=== PATIENT | female | born 1990 | race Caucasian/White ===

== ENCOUNTER 2025-02-07 17:40 | Emergency (ER) | payer BC ==
[~2025-02-07] VITALS: Ht 167.6 cm; Wt 113.4 kg
[2025-02-07] MEDS ORDERED: GABA300C PO (17:56)
[2025-02-07] MEDS ORDERED: PANT40TA2 PO (17:56)
[2025-02-07] MEDS ORDERED: PROP80CA59 PO (17:56)
[2025-02-07 18:00] LABS: BASOPHILS % (AUTO) 0.4 % (0.0-2.0); EOSINOPHILS # (AUTO) 0.1 K/uL (0.0-0.7); EOSINOPHILS % (AUTO) 1.4 % (0.0-7.0); HEMATOCRIT 39.4 % (31.2-41.9); HEMOGLOBIN 13.3 g/dL (10.9-14.3); LYMPHOCYTES # (AUTO) 1.3 K/uL (0.8-4.8); LYMPHOCYTES % (AUTO) 25.5 % (20.5-51.5); MEAN CORPUSCULAR HEMOGLOBIN 30.3 uug (24.7-32.8); MEAN CORPUSCULAR HGB CONC 34 g/dL (32.3-35.6); MONOCYTES # (AUTO) 0.6 K/uL (0.1-1.30); MONOCYTES % (AUTO) 10.9 % (0.0-11.0); NEUTROPHILS # (AUTO) 3.2 K/uL (1.8-8.9); NEUTROPHILS % (AUTO) 61.8 % (38.5-71.5); PLATELET COUNT (AUTO) 222 K/uL (179-408); RED BLOOD CELL COUNT(AUTO) 4.38 MIL/uL (3.63-4.92); WHITE BLOOD COUNT (AUTO) 5.3 K/uL (3.8-11.8)
[2025-02-07 18:03] LABS: DIFFERENTIAL COMMENT 1
[2025-02-07 18:05] LABS: CALCIUM 8.2 mg/dL (8.5-10.1); CREATININE 0.6 mg/dL (0.6-1.3)
[2025-02-07] MEDS ORDERED: HYDROCORTISONE SOD SUCCINATE 100 MG/2 ML VIAL IV ONE (18:23)
[2025-02-07] MEDS: ALBUTEROL SULFATE 2.5 MG/3 ML NEBU NEB ONE (18:24)
[2025-02-07] MEDS: IPRATROPIUM BROMIDE 0.5 MG/2.5 ML NEBU NEB ONE (18:24)
[2025-02-07 18:26] VITALS: O2SAT 99
[2025-02-07] MEDS ORDERED: ALBUTEROL SULFATE 2.5 MG/3 ML NEBU ONE (18:26)
[2025-02-07] MEDS ORDERED: IPRATROPIUM BROMIDE 0.5 MG/2.5 ML NEBU ONE (18:27)
[2025-02-07] MEDS: HYDROCORTISONE SOD SUCCINATE 100 MG/2 ML VIAL IV ONE (18:28)
[2025-02-07] MEDS ORDERED: METH4TAB PO (18:30)
[2025-02-07] MEDS ORDERED: AZIT250T13 PO (18:30)
[2025-02-07 18:41] VITALS: O2SAT 100
[2025-02-07 18:54] VITALS: BP 135/102; O2SAT 100
== END 2025-02-07 18:54 | disposition home or self-care (01) ==
LOC: ER 17:40
DX: R55 Syncope and collapse (principal); K21.9 Gastro-esophageal reflux disease without esophagitis; Z79.899 Other long term (current) drug therapy; Z88.0 Allergy status to penicillin; Z88.1 Allergy status to other antibiotic agents; Z88.2 Allergy status to sulfonamides
CPT/HCPCS: 99284; 96374; 80048; 85025; 36415; 94640; 93005; J1720; A4606; A4663; J3590

== ENCOUNTER 2025-02-19 20:33 | Emergency (ER) | payer BC ==
[~2025-02-19] VITALS: Ht 167.6 cm; Wt 115.7 kg
[~2025-02-19 20:33] MED LIST: AZIT250T13 PO; GABA300C PO; METH4TAB PO; PANT40TA2 PO; PROP80CA59 PO
[2025-02-19] MEDS ORDERED: METOCLOPRAMIDE HCL 10 MG TABLET ONE (22:58)
[2025-02-19] MEDS ORDERED: ACETAMINOPHEN 500 MG TABLET ONE (22:58)
[2025-02-19] MEDS: ACETAMINOPHEN 500 MG TABLET PO ONE (23:00)
[2025-02-19] MEDS: METOCLOPRAMIDE HCL 10 MG TABLET PO ONE (23:00)
[2025-02-20] MEDS ORDERED: CYCL5TAB PO (00:58)
[2025-02-20] MEDS ORDERED: METO-295 PO (00:58)
[2025-02-20] MEDS ORDERED: NAPR-1009 PO (00:58)
[2025-02-20 01:17] VITALS: BP 147/82; TEMP 98; O2SAT 98
== END 2025-02-20 01:18 | disposition home or self-care (01) ==
LOC: ER 20:37
DX: S06.0X0A Concussion without loss of consciousness, initial encounter (principal); M54.42 Lumbago with sciatica, left side; M54.2 Cervicalgia; R03.0 Elevated blood-pressure reading, without diagnosis of hypertension; R41.0 Disorientation, unspecified; K21.9 Gastro-esophageal reflux disease without esophagitis; F41.9 Anxiety disorder, unspecified; Z79.899 Other long term (current) drug therapy; Z88.0 Allergy status to penicillin; Z88.1 Allergy status to other antibiotic agents; Z88.2 Allergy status to sulfonamides; Z86.79 Personal history of other diseases of the circulatory system; Z60.2 Problems related to living alone; V09.20XA Pedestrian injured in traffic accident involving unspecified motor vehicles, initial encounter; Y93.89 Activity, other specified; Y92.488 Other paved roadways as the place of occurrence of the external cause; Y99.8 Other external cause status
CPT/HCPCS: 70450; 72131; A4606; A4663; A9150; J8597